=== PATIENT | male | born 1970 | race Caucasian/White ===

== ENCOUNTER 2019-01-26 13:52 | Emergency (ER) | payer OTHER ==
[~2019-01-26] VITALS: Ht 162.6 cm; Wt 58.2 kg
[2019-01-26 13:57] VITALS: Ht 162.6 cm; Wt 58.2 kg
[2019-01-26] MEDS ORDERED: KEFLEX500 MG PO (15:37)
[2019-01-26] MEDS ORDERED: HYDROCODONE-A1 UDTA2 PO (15:37)
[2019-01-26 15:41] VITALS: BP 122/68
== END 2019-01-26 15:43 | disposition home or self-care (01) ==
LOC: D.ER 13:52
DX: S51.812A Laceration without foreign body of left forearm, initial encounter (principal); W34.00XA Accidental discharge from unspecified firearms or gun, initial encounter; Y93.89 Activity, other specified; Y92.89 Other specified places as the place of occurrence of the external cause